=== PATIENT | female | born 1950 | race Caucasian/White ===

== ENCOUNTER 2023-11-12 07:56 | Outpatient (OUT) | payer MEDICARE, SELFPAY ==
--- NOTE | 2023-11-12 | XR_ITS ---
[address] [address] Patient Name: FRANCISCO LOMELI MRN: [id number] date: 1950 Sex: F Assigned Patient Location: Current Patient Location: Accession/Order Number: [id number] Exam Date: 11/12/2023 07:59 Report Date: 11/15/2023 09:54 At the request of: BERNICE ACE Procedure: XR lumbar spine min 4V EXAMINATION: XR lumbar spine min 4V HISTORY: LUMBAR SPINE PAIN COMPARISON: XR L-spine 09/28/2023 FINDINGS: BONES: Scoliotic curvature of lumbar spine. Grade 1 anterolisthesis of L4 on 5 and of L5 on S1; no appreciable change during flexion and extension.. Marked degenerative facet arthropathy L2-L3 through L5-S1. DISC SPACES: Moderate narrowing throughout lumbar spine. Suspect marked narrowing at L5-S1. PARASPINOUS: Negative. No paraspinous abnormality is seen. OTHER: Negative. XR/XR lumbar spine min 4V IMPRESSION: 1. Multilevel marked degenerative changes of lumbar spine; no appreciable change or acute abnormality. 2. Evaluation is limited by patient body habitus and osteopenia. Electronically authenticated by: NERI STUBBS Date: 11/15/2023 09:54
== END 2023-11-12 07:57 | disposition home or self-care (01) ==
LOC: EC 07:56
PROVIDERS: Visit Provider Orthopaedic Surgery Orthopaedic Surgery of the Spine
DX: M54.50 Low back pain, unspecified (principal); M51.36 Other intervertebral disc degeneration, lumbar region
CPT/HCPCS: 72110

== ENCOUNTER 2023-12-29 14:12 | Outpatient (OUT) | payer MEDICARE, SELFPAY ==
--- NOTE | 2023-12-29 14:44 | P.CN_ITS ---
Consult Note: HPI Data of Consult Patient: new to practice Requesting Physician: Monica Esparza NP Primary Care Provider: Non-Staff Physician, MD Consult Narrative Reason for consult: establish Narrative: Opal Al a pleasant 73 year old female presents for evaluation and management of chronic low back pain and neck pain. Patient has a longstanding hx of OA in neck and low back, recently underwent lumbar/thoracic xray and MRI with significant multilevel degenerative changes and stenosis, as well as listhesis. patient has been evaluated by Dr Wasserman who recommends surgical intervention however pt is not interested in surgery. She recently completed 6 weeks of PT at [facility] with significant improvement in pain. Pain 0/10 for the last week. Patient denies numbness tingling and weakness, denies loss of bowel and bladder. no recent falls. Utilizes tylenol PRN with mild benefit, avoids NSAIDs due to hx of ulcer with bleeding per pt. cc:: CC: Monica Esparza NP Review of Systems ROS Status of ROS 10 or more systems reviewed and unremark able except as noted in history and below Musculoskeletal Denies: back pain or neck pain Exam Constitutional Documenting provider has reviewed patient's vital signs: yes Common normals: no apparent distress, oriented x3, healthy appearing, alert and well nourished General appearance: cooperative HENMT Common normals: normocephalic, hearing grossly normal bilaterally and moist oral mucous membranes Head and scalp: normocephalic Eye Common normals: PERRL Pupil: PERRL Neck & C-Spine Common normals: full ROM General: normal visual inspection Cervical spine: pain with cervical ROM and cervical spine tenderness Other: positive facet loading negative sprulings strength 5/5 in BUE, reports intermittent numbness tingling and weakness of BUE sensation intact BUE Chest Common normals: inspection of chest normal Respiratory Common normals: normal respiratory effort, no retractions and no use of accessory muscles Back & Pelvis Lumbar spine/lower back: normal to inspection, lumbar ROM normal and straight leg raise negative bilaterally; ROM not limited, no pain with ROM, no lumbar spinal tenderness and no paraspinal muscle tenderness Sacroiliac joints: SI joints normal Other: negative facet loading strength 5/5 in BLE sensation intact BLE Neuro Common normals: oriented x3, CN's II-XII intact bilaterally, moves all extremities, no focal motor deficits, no sensory deficits noted and deep tendon reflexes 2+ bilaterally Sensorium/orientation: alert Motor exam: strength 5/5 throughout and no movement abnormalities noted Psych Common normals: mental status grossly normal, thought process normal, cooperative, affect normal, speech normal and activity/motor behavior normal Speech: normal speech Thought process: normal thought process Results Additional Findings Additional findings: If on a controlled substance or opioids, I have checked an [facility] report on this patient and there are no aberrancies noted in the prescribing history.??If on a controlled substance or opioid a drug screen was completed and reviewed within the last year, and if there has not been a drug screen completed we ordered one today to monitor higher risk, state monitored pain medication use. As part of providing excellent, safe, comprehensive care, the following was completed at our patient's visit: 1. A medication reconciliation and review to ensure accurate knowledge of current/active medications, including asking our patients to inform us about any [id number] medications or herbal remedies/nutritional supplements/alternative remedies. 2. A review to specifically ensure our patients have had annual screening for screening for depression, screening for tobacco use, and screening for unhealthy alcohol use. For concerning screenings had a discussion with the patient, provided patient education, and recommended follow-up with primary care provider when appropriate. If patient noted with a risk of falling, they received education on strength, gait, and balance training to prevent future risk of falling. Assessment and Plan Assessment and Plan (1) Lumbar stenosis with neurogenic claudication: (2) Lumbar degenerative disc disease: (3) Lumbar spondylosis: (4) Cervical spondylosis: (5) Degenerative disc disease, cervical: Plan no pain on exam, no pain for 1 week. continue PRN tylenol update cervical xray to evaluate cervical spondylosis and DDD, consider cervical MRI based on results continue HEP as tolerated f/u as pain worsens, can consider TFESI and MBBs working towards RFA
== END 2023-12-29 14:13 | disposition home or self-care (01) ==
LOC: PM 14:14
PROVIDERS: Visit Provider Nurse Practitioner
DX: M47.812 Spondylosis without myelopathy or radiculopathy, cervical region (principal); M48.062 Spinal stenosis, lumbar region with neurogenic claudication; M51.369 Other intervertebral disc degeneration, lumbar region without mention of lumbar back pain or lower extremity pain; M47.816 Spondylosis without myelopathy or radiculopathy, lumbar region; M50.30 Other cervical disc degeneration, unspecified cervical region
CPT/HCPCS: 72050; G0463

== ENCOUNTER 2023-12-29 14:49 | Outpatient (OUT) | payer MEDICARE, SELFPAY ==
--- NOTE | 2023-12-29 15:01 | XR_ITS ---
The [address] [address] Patient Name: FRANCISCO LOMELI MRN: [id number] date: 1950 Sex: F Assigned Patient Location: [facility] Current Patient Location: [facility] Accession/Order Number: [id number] Exam Date: 12/29/2023 15:04 Report Date: 12/30/2023 10:55 At the request of: KARRIE MCPHERSON Procedure: XR cervical spine 5V EXAMINATION: XR cervical spine 5V HISTORY: Cervical Spondylosis COMPARISON: No relevant comparison available. FINDINGS: BONES: Loss of normal cervical lordosis with no acute fracture. 2 mm anterolisthesis of C3 on C4. Moderate spondylosis and facet osteoarthropathy DISC SPACES: Moderate multilevel narrowing C4-C7 PARASPINOUS: Negative. No paraspinous abnormality is seen. OTHER: Negative. XR/XR cervical spine 5V IMPRESSION: Moderate degenerative changes with loss of normal lordosis Electronically authenticated by: TREMAINE CHOUDHURY Date: 12/30/2023 10:55
== END 2023-12-29 14:50 | disposition home or self-care (01) ==
LOC: RAD 14:54
PROVIDERS: Visit Provider Nurse Practitioner
DX: M47.812 Spondylosis without myelopathy or radiculopathy, cervical region (principal)
CPT/HCPCS: 72050